=== PATIENT | male | born 1945 | race Caucasian/White ===

== ENCOUNTER 2016-10-19 23:37 | Emergency (ER) | payer MEDICARE ==
[2016-10-19 23:38] VITALS: BMI 21.2
[2016-10-19 23:48] VITALS: BP 156/75; TEMP 97.9; O2SAT 98
[2016-10-20] MEDS ORDERED: Sodium Chloride 0.9% 1,000 ML IV ONE (01:11)
--- NOTE | 2016-10-20 01:12 | C.PDOC ---
History Of Present Illness Patient is a 71 year old male who presents to the ER with a complaint of a diffuse cramping abdominal pain associated with vomiting and diarrhea for the past 2 days. Patient report his symptoms have improved but is requesting an evaluation. Denies fever, sick contact or recent travel. Time Seen by Provider: 10/20/16 00:43 Chief Complaint (Nursing): Abdominal Pain History Per: Patient History/Exam Limitations: no limitations Onset/Duration Of Symptoms: Days (2) Current Symptoms Are (Timing): Still Present Pain Scale Rating Of: 3 Location Of Pain/Discomfort: Diffuse Radiation Of Pain To:: None Quality Of Discomfort: Cramping Associated Symptoms: Vomiting, Diarrhea. denies: Fever Exacerbating Factors: None Alleviating Factors: None Recent travel outside of the [place]: No Past Medical History Reviewed: Historical Data, Nursing Documentation, Vital Signs Vital Signs: Last Vital Signs Temp 97.9 F 10/19/16 23:43 Pulse 60 10/20/16 03:55 Resp 17 10/20/16 03:55 BP 156/75 H 10/19/16 23:43 Pulse Ox 98 10/20/16 03:56 - Medical History PMH: CVA, Diabetes, HTN, Hypercholesterolemia Surgical History: Cholecystectomy - [facility] Procedures INFLUENZA VACCINATION (03/17/14) LAPAROSCOPIC CHOLECYSTECTOMY (03/17/14) Family History: States: No Known Family Hx - Social History Hx Tobacco Use: No Hx Alcohol Use: No Hx Substance Use: No - Immunization History Hx Tetanus Toxoid Vaccination: No Hx Influenza Vaccination: No Hx Pneumococcal Vaccination: Yes Review Of Systems Except As Marked, All Systems Reviewed And Found Negative. Constitutional: Negative for: Fever Gastrointestinal: Positive for: Vomiting, Abdominal Pain (Cramping), Diarrhea Physical Exam - Physical Exam Appears: Non-toxic, No Acute Distress Skin: Normal Color, Warm, Dry Head: Atraumatic, Normacephalic Ear(s): Bilateral: Normal Oral Mucosa: Moist Neck: Normal, Supple Chest: Symmetrical, No Tenderness Cardiovascular: Rhythm Regular, No Murmur Respiratory: Normal Breath Sounds, No Rales, No Rhonchi, No Wheezing Gastrointestinal/Abdominal: Soft, No Tenderness Neurological/Psych: Oriented x3, Normal Speech, Normal Cognition ED Course And Treatment - Laboratory Results Result Diagrams: 10/20/16 01:11 10/20/16 01:11 O2 Sat by Pulse Oximetry: 98 (Room air) Pulse Ox Interpretation: Normal Progress Note: CXR and urinalysis ordered. Pepcid, zofran and IV fluids administered. Medical Decision Making Medical Decision Making: On re-exam, the patient reports improvement of symptoms. Lungs are CTA, heart is RRR, abdomen is soft, non-tender and tolerating PO well. Ambulatory in the ED with steady gait, Follow up with the medical doctor within 1-2 days. return if worsened. Disposition - Disposition Referrals: Viviane Veronica MD [Staff Provider] - Disposition: HOME/ ROUTINE Disposition Time: 03:48 Condition: GOOD Additional Instructions: Follow up with the medical doctor within 1-2 days. return if worsened. Prescriptions: Famotidine [Pepcid] 20 mg PO BID #20 tab Ondansetron ODT [Zofran ODT] 1 odt PO BID PRN #10 odt PRN Reason: Nausea/Vomiting Instructions: Gastroenteritis (ED) Print Language: KHMER - Clinical Impression Clinical Impression: Viral syndrome, Diarrhea, Vomiting - Scribe Statement The provider has reviewed the documentation as recorded by the Scribnatalia Fitzgerald All medical record entries made by the Scribe were at my direction and personally dictated by me. I have reviewed the chart and agree that the record accurately reflects my personal performance of the history, physical exam, medical decision making, and the department course for this patient. I have also personally directed, reviewed, and agree with the discharge instructions and disposition.
[2016-10-20] MEDS ORDERED: Sodium Chloride 0.9% 1,000 ML ONE (01:23)
[2016-10-20 01:25] LABS: BASO % 0.1 % (0.0-2.0); EOS # 0.1 K/uL (0.0-0.7); EOS % 0.8 % (0.0-4.0); LYMPH # 0.4 K/uL (1.0-4.3); LYMPH % 4.1 % (20.0-40.0); MEAN CELL VOLUME 89.2 fL (80.0-94.0); MEAN CORPUSCULAR HEMOGLOBIN 29.2 pg (27.0-31.0); MEAN CORPUSCULAR HGB CONC 32.8 g/dL (33.0-37.0); MONO # 0.6 K/uL (0.0-0.8); PLATELET COUNT 206 K/uL (130-400); RED CELL DISTRIBUTION WIDTH 14.2 % (11.5-14.5); WHITE BLOOD COUNT 9.8 K/uL (4.8-10.8)
[2016-10-20 01:41] LABS: POTASSIUM 4.3 mmol/L (3.6-5.2); SODIUM 143 mmol/L (132-148)
[2016-10-20 01:42] LABS: AST/SGOT 34 U/L (17-59); BILIRUBIN,TOTAL 0.6 mg/dL (0.2-1.3); GFR AFRICAN-AMERICAN > 60
[2016-10-20 01:44] LABS: CALCIUM 9.4 mg/dl (8.6-10.4)
[2016-10-20 01:59] LABS: EOSINOPHIL 2 % (0-4); NEUTROPHIL 81 % (50-75); TOTAL CELLS COUNTED 100
[2016-10-20 02:19] LABS: BLOOD UREA NITROGEN 25 mg/dL (9-20); CARBON DIOXIDE 23 mmol/L (22-30); GLUCOSE,RANDOM 138 mg/dL (75-110); TOTAL PROTEIN 7.9 g/dL (6.3-8.3)
[2016-10-20 02:20] LABS: ALB/GLOB RATIO 1.3 (1.0-2.1); ALKALINE PHOSPHATASE 116 U/L (38-126); ALT/SGPT 35 U/L (21-72)
[2016-10-20 02:22] LABS: CHLORIDE 109 mmol/L (98-107)
[2016-10-20 03:56] VITALS: PULSE 60; RESP 17
--- NOTE | 2016-10-20 09:39 | RAD ---
PROCEDURE: CHEST RADIOGRAPH, 1 VIEW HISTORY: Abdominal pain COMPARISON: 06/14/2016. FINDINGS: LUNGS: The lungs are clear. PLEURA: No pneumothorax or pleural fluid seen. CARDIOVASCULAR: Normal. OSSEOUS STRUCTURES: No significant abnormalities. VISUALIZED UPPER ABDOMEN: Normal. OTHER FINDINGS: None. IMPRESSION: No active pulmonary disease.
== END 2016-10-20 04:11 | disposition home or self-care (01) ==
LOC: C.ER 23:37
DX: B34.9 Viral infection, unspecified (principal); R19.7 Diarrhea, unspecified; R11.10 Vomiting, unspecified
CPT/HCPCS: 71010; 80053; 83690; 85025; 96361; 96374; 96375; 99283; J2405; J7040